=== PATIENT | female | born 1965 | race Caucasian/White ===

== ENCOUNTER → 2017-07-25 | Outpatient (CLI) | payer BC, OTHER ==
[~2017-07-25] MED LIST: CLIN300 PO; Keflex500 MG PO; Norco 10-325 T1 EACH PO; TRAM50 PO
== END ==
LOC: LAB 17:34 → LAB SHORT 17:34
DX: Z51.81 Encounter for therapeutic drug level monitoring (principal); M79.672 Pain in left foot; Z79.899 Other long term (current) drug therapy
CPT/HCPCS: G0480

== ENCOUNTER 2019-02-13 09:38 | Day surgery (SDC) | payer BC, OTHER ==
[~2019-02-13] VITALS: Ht 157.5 cm; Wt 89.9 kg
--- NOTE | 2019-02-13 11:18 | NUR ---
Ambulatory in Day Surgery History, Chart, Medications and Allergies reviewed before start of procedure.Patient confirms NPO status and agrees with scheduled surgery. Patient states colon prep results clear.
--- NOTE | 2019-02-13 11:24 | NUR ---
02/13/19 1124 VANGIE SIMON History, Chart, Medications and Allergies reviewed before start of procedure.3-LEAD EKG REVIEWED WITH PHYSICIAN PRIOR TO START OF PROCEDURE.O2 VIA N/C INTACT THROUGHOUT SEDATION/PROCEDURE. MONITOR INTACT WITH CONTINUOUS PULSE OXIMETRY AND INTERMITTENT BP.PATIENT DETERMINED TO BE ASA APPROPRIATE FOR PROPOFOL SEDATION PRIOR TO START OF PROCEDURE BY .
== END 2019-02-13 12:24 | disposition home or self-care (01) ==
LOC: ORSCMMR 09:38 → ORD 10:30 → ORSCMMR 10:30
PROVIDERS: Internal Medicine Gastroenterology
PROC: 0DBN8ZX Excision of Sigmoid Colon, Via Natural or Artificial Opening Endoscopic, Diagnostic (ICD-10-PCS; principal; 2019-02-13 10:30)
DX: Z12.11 Encounter for screening for malignant neoplasm of colon (principal); D12.5 Benign neoplasm of sigmoid colon; I10 Essential (primary) hypertension; E78.00 Pure hypercholesterolemia, unspecified; K63.89 Other specified diseases of intestine; K57.30 Diverticulosis of large intestine without perforation or abscess without bleeding; E66.01 Morbid (severe) obesity due to excess calories; Z68.36 Body mass index [BMI] 36.0-36.9, adult; Z79.899 Other long term (current) drug therapy
CPT/HCPCS: 88305; J2704; J7120

== ENCOUNTER → 2021-12-30 | Outpatient (CLI) | payer BC ==
[2022-01-03 13:09] LABS: HPV 16 Positive (Negative); HPV 18 Negative (Negative); HPV OTHER HR TYPES Negative (Negative)
== END | disposition home or self-care (01) ==
LOC: LAB 13:38 → RAD SHORT 13:38 → LAB SHORT 13:38
PROVIDERS: Advanced Practice Midwife
DX: Z01.419 Encounter for gynecological examination (general) (routine) without abnormal findings (principal)
CPT/HCPCS: 87624; G0123

== ENCOUNTER → 2022-02-01 | Outpatient (CLI) | payer BC | LOC: LAB 13:12 → LAB SHORT 13:12 | DX: R87.619 Unspecified abnormal cytological findings in specimens from cervix uteri (principal) | CPT/HCPCS: 88305 ==

== ENCOUNTER 2022-04-03 08:10 | Day surgery (SDC) | payer BC ==
[~2022-04-03] VITALS: Ht 157.5 cm; Wt 82.6 kg
[~2022-04-03 08:10] MED LIST changes: +ABILIFY MYCITE2 M2 PO; +BUSPIRONE HCL7.5 M1 PO; +ESTRADIOL CREAM VAG; +Oxybutynin Chlor5 M1 PO; +PROZAC20 M1 PO; +Prinivil10 MG PO
[2022-04-03] MEDS ORDERED: ACET500 PO (16:21)
[2022-04-03] MEDS ORDERED: IBUP400 PO (16:21)
[2022-04-03] MEDS ORDERED: OXYC5 PO (16:22)
--- NOTE | 2022-04-03 17:14 | NUR ---
DISCHARGE SUMMARY PATIENT CAME TO UNIT POST OP DAY 0 MANOLO LAP TOTAL HYSTER. ALERT AND ORIENTED. ABD PAINFUL, MEDICATED PER EMAR. DENIED NAUSEA AND TOLERATING CRACKERS, JELLO, WATER, AND SANDWICH. ABD LAP SITES X 4 C/D/I. ABLE TO AMBULATE IN TO BATHROOM AND VOID. DISCHARGE ORDER ON CHART. DISCHARGE INSTRUCTIONS GIVEN TO PATIENT ON NEW RX'S, INCISION CARE, AND FOLLOW UP APPTS. IV'S DC'D WNL. PATIENT LEFT UNIT FOR HOME WITH MOTHER VIA WHEELCHAIR.
--- NOTE | 2022-04-04 08:47 | NUR ---
04/04/22 0847 Valeria Aragon VERIFICATION: EDIT CHART.
== END 2022-04-03 17:02 | disposition home or self-care (01) ==
LOC: ORSCMMR 08:10 → ORD 09:30 → ORSCMMR 09:30 → ORD 11:30 → ORSCMMR 11:30 → SURS 13:16 → ORSCMMR 17:02
PROVIDERS: Obstetrics & Gynecology
PROC: 0UT74ZZ Resection of Bilateral Fallopian Tubes, Percutaneous Endoscopic Approach (ICD-10-PCS; principal; 2022-04-03 09:30)
PROC: 8E0W4CZ Robotic Assisted Procedure of Trunk Region, Percutaneous Endoscopic Approach (ICD-10-PCS; principal; 2022-04-03 09:30)
PROC: 0UT94ZZ Resection of Uterus, Percutaneous Endoscopic Approach (ICD-10-PCS; principal; 2022-04-03 09:30)
PROC: 0UT24ZZ Resection of Bilateral Ovaries, Percutaneous Endoscopic Approach (ICD-10-PCS; principal; 2022-04-03 09:30)
DX: D06.9 Carcinoma in situ of cervix, unspecified (principal); D25.9 Leiomyoma of uterus, unspecified; D27.0 Benign neoplasm of right ovary; N83.8 Other noninflammatory disorders of ovary, fallopian tube and broad ligament; I10 Essential (primary) hypertension; F17.210 Nicotine dependence, cigarettes, uncomplicated; Z79.899 Other long term (current) drug therapy
CPT/HCPCS: 58571; S2900; 88307; 93005; 93010; A9270; J0690; J1100; J1170; J1885; J2250; J2370; J2405; J2704; J2795; J3010; J7120

== ENCOUNTER → 2024-04-05 | Outpatient (CLI) | payer BC ==
[~2024-04-05] MED LIST changes: +ACET500 PO; +IBUP400 PO; +OXYC5 PO
[2024-04-05 11:34] LABS: BASOPHILS PERCENT AUTO 1 % (0-2); EOSINOPHILS ABSOLUTE AUTO 0.32 K/mm3 (0.00-0.68); EOSINOPHILS PERCENT AUTO 2 % (0-6); Hematocrit 42.4 % (33.0-51.0); Hemoglobin 14.3 g/dL (11.5-16.0); IMMATURE GRAN ABSOLUTE AUTO 0.05 K/mm3 (0.00-0.10); IMMATURE GRAN PERCENT AUTO 0 % (0-1); LYMPHOCYTES ABSOLUTE AUTO 2.17 K/mm3 (0.84-5.20); LYMPHOCYTES PERCENT AUTO 17 % (21-46); MONOCYTES ABSOLUTE AUTO 1.23 K/mm3 (0.16-1.47); MONOCYTES PERCENT AUTO 9 % (4-13); Mean Corpuscular HGB 31.8 pg (26.0-34.0); Mean Corpuscular HGB Conc 33.7 g/dL (31.5-36.5); Mean Corpuscular Volume 94 fL (80-100); Mean Platelet Volume 10.7 fL (9.1-12.4); NEUTROPHILS ABSOLUTE AUTO 9.24 K/mm3 (1.96-9.15); NEUTROPHILS PERCENT AUTO 70 % (41-73); Platelet Count 286 K/mm3 (150-400); RDW Standard Deviation 44.7 fL (35.1-46.3); White Blood Cell Count 13.11 K/mm3 (4.00-11.30)
[2024-04-05 11:46] LABS: Albumin, Blood 3.8 g/dL (3.4-5.0); Albumin/Globulin Ratio 0.9 (0.8-1.8); Bilirubin, Total 0.6 mg/dL (0.1-1.0); Bun/Creatinine Ratio 15.2 (12.0-20.0); Calcium, Blood 9.4 mg/dL (8.5-10.1); Creatinine, Blood 0.79 mg/dL (0.40-1.00); Globulin, Blood 4.1 g/dL (2.2-4.0); Potassium, Blood 4.5 mmol/L (3.5-5.5); Total Protein, Blood 7.9 g/dL (6.4-8.2)
== END | disposition home or self-care (01) ==
LOC: LAB 11:30 → LAB SHORT 11:30
PROVIDERS: Physician Assistant
DX: R42 Dizziness and giddiness (principal)
CPT/HCPCS: 80053; 85025